=== PATIENT | male | born 1970 | race Caucasian/White ===

== ENCOUNTER 2021-10-25 10:27 | Emergency (ER) | payer OTHER ==
[~2021-10-25] VITALS: Ht 175.2 cm; Wt 99.8 kg
[2021-10-25 11:03] LABS: BASO % 0.1 % (0.0-1.0); HEMATOCRIT 48.2 % (42.0-52.0); LYMPH # 0.8 10*3/uL (1.3-4.4); LYMPH % 9.6 % (27.0-41.0); MEAN CORPUSCULAR HGB 33.2 pg (27.0-31.0); MEAN CORPUSCULAR HGB CONC 33.2 g/dl (33.0-37.0); MEAN PLATELET VOLUME 8.6 fl (9.6-12.3); MONO # 0.1 10*3/uL (0.1-1.0); MONO % 1.8 % (3.0-9.0); NEUT # 6.9 10*3/uL (2.3-7.9); NEUT % 87.1 % (47.0-73.0); PLATELET COUNT AUTOMATED 285 10*3/uL (130-400); RED BLOOD COUNT 4.82 10*6/uL (4.50-5.90); RED CELL DISTRI WIDTH 12.7 % (0-14.5); WHITE BLOOD COUNT 7.9 10*3/uL (4.8-10.8)
[2021-10-25 11:18] LABS: ALKALINE PHOSPHATASE 36 U/L (45-117); BUN 18 mg/dl (7-24); CHLORIDE 110 mmol/L (98-107); CREATININE 1.23 mg/dL (0.70-1.30); POTASSIUM 4.5 mmol/L (3.5-5.1); SGOT/AST 20 IU/L (3-35); SGPT/ALT 31 U/L (12-78); SODIUM 140 mmol/L (136-145); TOTAL PROTEIN 8.2 gm/dL (6.4-8.2)
[2021-10-25 11:29] LABS: ACETAMINOPHEN (TYLENOL) 46.7 ug/ml (10-30); ETHYL ALCOHOL < 3.0 mg/dl (<3)
[2021-10-25 11:36] LABS: BILIRUBIN Negative (Negative); BLOOD Negative (Negative); CLARITY Clear (Clear); COLOR Yellow (Yellow); GLUCOSE Negative (Negative); KETONE Trace (Negative); LEUKO ESTERASE Negative (Negative); NITRITE Negative (Negative); SPECIFIC GRAVITY >= 1.030 (1.001-1.030)
[2021-10-25 11:43] LABS: URINE AMPHETAMINES < 1000 (1000ng/ml); URINE BARBITURATES < 200 (200ng/ml); URINE BENZODIAZEPINES < 200 (200ng/ml); URINE CANNABINOIDS (THC) > 50 (50ng/ml); URINE COCAINE < 300 (300ng/ml); URINE METHADONE < 300 (300ng/ml); URINE OPIATES < 300 (300ng/ml)
[2021-10-25 11:44] LABS: URINE PHENCYCLIDINE < 25 (25ng/ml)
[2021-10-25 11:54] LABS: HYALINE CAST 0-2; MUCOUS TRACE; RBC 0-2 rbc/hpf (0-2); WBC 0-2 wbc/hpf (0-5)
== END 2021-10-25 13:48 | disposition left against medical advice (07) ==
LOC: ED 10:27
PROVIDERS: Student in an Organized Health Care Education/Training Program
DX: T39.1X2A Poisoning by 4-Aminophenol derivatives, intentional self-harm, initial encounter (principal); R45.851 Suicidal ideations; Z88.0 Allergy status to penicillin; Z88.8 Allergy status to other drugs, medicaments and biological substances; Y92.89 Other specified places as the place of occurrence of the external cause